=== PATIENT | male | born 1985 | race Caucasian/White ===

== ENCOUNTER 2017-04-25 01:02 | Emergency (ER) | payer OTHER ==
--- NOTE | ~2017-04-25 | EKG ---
PATIENT: TANISHA HAWLEY UNIT #: [id number] Ventricular Rate: 70 BPM Atrial Rate: 70 BPM P-R Interval: 180 ms QRS Duration: 84 ms Q-T Interval: 388 ms QTC Calculation(Bezet): 419 ms P [place]: 46 degrees Calculated R [place]: 55 degrees Calculated T [place]: 49 degrees Diagnosis Line: Normal sinus rhythm Diagnosis Line: Normal ECG Diagnosis Line: When compared with ECG of 23-OCT-2016 00:08, Diagnosis Line: No significant change was found Diagnosis Line: Confirmed by ANGI SOW MD ([id number]) on Diagnosis Line: 04/25/2017 4:06:32 PM INTERPRETING MD: CHIVO
--- NOTE | ~2017-04-25 | CT71 ---
[facility] A Service of [facility] RADIOLOGY TEXT RESULTS PATIENT: TANISHA HAWLEY JR LOCATION: [facility] : 81 UNIT #: [id number] AGE: [address]: Rich Keith MD SEX: M ORDER DR: [id number] [address] [id number] [id number] MR#: [id number] Acc #: [id number] NAME: TANISHA HAWLEY JR : 1985 SEX: M STUDY DATE/TIME: 04/25/2017 1:55 UNIT: [facility] ROOM: STUDY DESCRIPTION: CT Head Wo Contrast Attending Physician: Rich Keith M.D. Ordering Physician: Rich Keith M.D. Primary Care Physician: Primary Care Physician No MEDICAL IMAGING REPORT This report is preliminary unless electronic signature is present EXAM CT scan of the head without contrast. INDICATIONS Persistent headaches; patient recently had a sinus infection and now has dizziness. Symptoms have been going on for a week. COMPARISON 10/23/16 TECHNIQUE Unenhanced images were obtained through the brain. This CT exam was performed with one or more of the following radiation dose reduction techniques: Automatic exposure control, adjustment of mA and/or kV according to patient size, and iterative reconstruction. FINDINGS There is ethmoid sinus mucosal thickening. The ventricles and subarachnoid spaces are normal. There are no masses, extraaxial fluid collections or hemorrhage. IMPRESSION Ethmoid sinus mucosal thickening, otherwise normal. Dictated by... Obinna Perdomo M.D. THIS IS AN ELECTRONICALLY VERIFIED REPORT Obinna Perdomo M.D. at 04/25/2017 1:55 PM FEL/psc [facility] A Service of [facility] RADIOLOGY TEXT RESULTS PATIENT: TANISHA HAWLEY JR LOCATION: [facility] : [birth year] UNIT #: [id number] AGE: [address]: Rich Keith MD SEX: M ORDER DR: TD: 04/25/2017 02:32 JOB #: [id number] MEDICAL IMAGING REPORT Page 1 of 1 COPY
[~2017-04-25 01:02] MED LIST: ALBUTEROL17 GM INH; AMOXICILLIN500 M1 PO; ARIXTRA10 MG/0.8 SQ; ATARAX PO; BENZONATATE PO; BUSPIRONE HCL7.5 MG PO; CLINDAMYCIN HCL1 GM PO; COUMADIN PO; FLEXERIL10 MG PO; LORTAB 10/500 T1 TAB PO; LOTRIMIN10 ML TP; LOVENOX120 MG/0.8; METHADONE PO; MOTRIN20 MG/ML PO; NEURONTIN PO; NIX59 ML TOP; PREDNISONE PO; WARFARIN SODIU7.5 M1; WARFARIN SODIU7.5 MG PO; XARELTO10 MG PO
[2017-04-25 02:06] LABS: BASOPHIL# 0.1 X10e3 (0-0.3); BASOPHIL% 1.8 % (0-2.5); EOSINOPHIL# 0.6 X10e3 (0-0.7); EOSINOPHIL% 9.4 % (0.0-7.0); HEMATOCRIT 41.5 % (38.0-50.0); HEMOGLOBIN 13.7 gm/dL (13.0-16.0); LYMPHOCYTE# 3.2 X10e3 (1.0-3.5); LYMPHOCYTE% 51.3 % (17.0-45.0); MEAN CELL VOLUME 85.1 FL (83-96); MEAN CORPUSCULAR HEMOGLOBIN 28.1 PG (28-34); MONOCYTE# 0.5 X10e3 (0-1.0); MONOCYTE% 8.2 % (3.0-12.0); NEUTROPHIL# 1.8 X10e3 (1.5-7.1); NEUTROPHIL% 29.3 % (40-75); PLATELET COUNT 265 X10e3 (140-420); RED BLOOD COUNT 4.87 X10e (3.90-5.60); RED CELL DISTRIBUTION WIDTH 14.4 % (11.0-15.5); WHITE BLOOD COUNT 6.3 X10e3 (4.0-10.5)
[2017-04-25 02:07] LABS: DIFF IND YES
[2017-04-25 02:13] LABS: POC - CKMB <1.0 ng/mL (0.0-7.9); POC - TROPONIN <0.05 ng/mL (<=0.05)
[2017-04-25 02:28] LABS: PLATELET ESTIMATE NORMAL (NORMAL); RBC NORMAL YES
[2017-04-25 02:30] LABS: BUN/CREATININE RATIO 26.25; CALCIUM SERUM 8.3 mg/dL (8.4-10.2); CREATININE SERUM 0.8 mg/dL (0.6-1.4); GLOM FILT RATE Estimated 116.6 mL/min (>60); POTASSIUM 3.9 mmol/L (3.5-5.1)
== END 2017-04-25 02:25 | disposition home or self-care (01) ==
LOC: CED 01:02
PROVIDERS: Emergency Medicine
DX: R51 Headache (principal); R07.89 Other chest pain; F17.200 Nicotine dependence, unspecified, uncomplicated; Z79.899 Other long term (current) drug therapy; Z88.5 Allergy status to narcotic agent
CPT/HCPCS: 36415; 70450; 80048; 82553; 84484; 85025; 93005; 99284